=== PATIENT | male | born 1980 | race Two or more races ===

== ENCOUNTER 2018-03-14 18:48 | Inpatient (IN) | payer OTHER ==
[~2018-03-14] VITALS: Ht 177.8 cm; Wt 86.2 kg
[2018-03-14] MEDS ORDERED: COZAAR100 MG (19:30)
[2018-03-14] MEDS ORDERED: HYDROCHLOROTHIA50 MG (19:31)
[2018-03-14] MEDS ORDERED: TOPROL XL100 M1 (19:31)
--- NOTE | 2018-03-14 19:33 | NUR ---
PACIENTE REIFERE QUE LE NOTIFICARON DE LA OFICINA DEL DR. SHAW QUE LLEGUE A SHAYNA DE EMERGENCIAS .
== END 2018-04-13 20:23 | DRG 329 ==
LOC: ER 18:48 → ICU 20:30 → SURH 20:30 → ICU 03-25 12:09 → SURH 04-04 20:26
PROVIDERS: Urology; ADMIT Surgery
PROC: 0W9J30Z Drainage of Pelvic Cavity with Drainage Device, Percutaneous Approach (ICD-10-PCS; 2018-03-17)
PROC: 0DQN0ZZ Repair Sigmoid Colon, Open Approach (ICD-10-PCS; 2018-03-24)
PROC: 0W9J0ZZ Drainage of Pelvic Cavity, Open Approach (ICD-10-PCS; 2018-03-24)
PROC: 0D1B0Z4 Bypass Ileum to Cutaneous, Open Approach (ICD-10-PCS; 2018-03-24)
PROC: 0TQB0ZZ Repair Bladder, Open Approach (ICD-10-PCS; 2018-03-24)
PROC: 0T780DZ Dilation of Bilateral Ureters with Intraluminal Device, Open Approach (ICD-10-PCS; 2018-03-24)
PROC: 0DTN0ZZ Resection of Sigmoid Colon, Open Approach (ICD-10-PCS; principal; 2018-03-24 14:45)
PROC: 0DQ80ZZ Repair Small Intestine, Open Approach (ICD-10-PCS; 2018-03-24 14:45)
PROC: 5A1955Z Respiratory Ventilation, Greater than 96 Consecutive Hours (ICD-10-PCS; 2018-03-25)
PROC: 0BH17EZ Insertion of Endotracheal Airway into Trachea, Via Natural or Artificial Opening (ICD-10-PCS; 2018-03-25)
PROC: 30233K1 Transfusion of Nonautologous Frozen Plasma into Peripheral Vein, Percutaneous Approach (ICD-10-PCS; 2018-03-25)
PROC: 30233N1 Transfusion of Nonautologous Red Blood Cells into Peripheral Vein, Percutaneous Approach (ICD-10-PCS; 2018-03-25)
PROC: 30233R1 Transfusion of Nonautologous Platelets into Peripheral Vein, Percutaneous Approach (ICD-10-PCS; 2018-03-25)
PROC: 4A12X4Z Monitoring of Cardiac Electrical Activity, External Approach (ICD-10-PCS; 2018-04-05)
DX: K57.20 Diverticulitis of large intestine with perforation and abscess without bleeding (principal); K65.1 Peritoneal abscess; J95.821 Acute postprocedural respiratory failure; K63.2 Fistula of intestine; N39.0 Urinary tract infection, site not specified; N17.8 Other acute kidney failure; K91.72 Accidental puncture and laceration of a digestive system organ or structure during other procedure; E87.2 Acidosis; K91.841 Postprocedural hemorrhage of a digestive system organ or structure following other procedure; D62 Acute posthemorrhagic anemia; G72.81 Critical illness myopathy; Z99.11 Dependence on respirator [ventilator] status; B37.89 Other sites of candidiasis; R50.82 Postprocedural fever; R53.81 Other malaise; K66.0 Peritoneal adhesions (postprocedural) (postinfection); I10 Essential (primary) hypertension; E66.01 Morbid (severe) obesity due to excess calories; K57.30 Diverticulosis of large intestine without perforation or abscess without bleeding; Z93.3 Colostomy status

== ENCOUNTER 2018-05-02 15:09 | Inpatient (IN) | payer OTHER ==
[~2018-05-02] VITALS: Ht 177.8 cm; Wt 79.4 kg
[~2018-05-02 15:09] MED LIST: COZAAR100 MG; HYDROCHLOROTHIA50 MG; TOPROL XL100 M1
[2018-05-10] MEDS ORDERED: IMODIUM A-D2 MG PO (18:13)
== END 2018-05-10 19:03 | disposition home or self-care (01) | DRG 438 ==
LOC: ER 15:09 → ICU-2 18:17 → ICU 05-05 15:21 → SURH 05-07 12:29
PROVIDERS: ADMIT Internal Medicine
PROC: BW40ZZZ Ultrasonography of Abdomen (ICD-10-PCS; principal; 2018-05-02)
PROC: 4A033R1 Measurement of Arterial Saturation, Peripheral, Percutaneous Approach (ICD-10-PCS; 2018-05-02)
PROC: 30233N1 Transfusion of Nonautologous Red Blood Cells into Peripheral Vein, Percutaneous Approach (ICD-10-PCS; 2018-05-03)
PROC: 02HV33Z Insertion of Infusion Device into Superior Vena Cava, Percutaneous Approach (ICD-10-PCS; 2018-05-03)
PROC: BF37ZZZ Magnetic Resonance Imaging (MRI) of Pancreas (ICD-10-PCS; 2018-05-04)
PROC: 8E0ZXY6 Isolation (ICD-10-PCS; 2018-05-09)
DX: K85.80 Other acute pancreatitis without necrosis or infection (principal); N17.0 Acute kidney failure with tubular necrosis; K57.20 Diverticulitis of large intestine with perforation and abscess without bleeding; G72.81 Critical illness myopathy; E87.2 Acidosis; D62 Acute posthemorrhagic anemia; Z93.3 Colostomy status; I12.9 Hypertensive chronic kidney disease with stage 1 through stage 4 chronic kidney disease, or unspecified chronic kidney disease; N18.9 Chronic kidney disease, unspecified; E66.09 Other obesity due to excess calories; E86.0 Dehydration; J09.X2 Influenza due to identified novel influenza A virus with other respiratory manifestations

== ENCOUNTER 2018-06-14 14:32 | Inpatient (IN) | payer OTHER ==
[~2018-06-14] VITALS: Ht 177.8 cm; Wt 175.0 kg
[~2018-06-14 14:32] MED LIST changes: +IMODIUM A-D2 MG PO
--- NOTE | 2018-06-14 15:17 | NUR ---
PACIENTE ALERTA,ACTIVO Y ORIENTADO.REFIERE PRESION BAJA DESDE LA MANANA Y QUE ANAND SINTIO UN POCO DE DEBILIDAD.SE REALIZA EKG Y SE MUESTRA A CLYDE SANDRA QUIEN INDICA COLOCAR EN PASILLO PARA EVALUACION MEDICA.
--- NOTE | 2018-06-14 17:04 | NUR ---
MS ALAN ORIENTA PTE SOBRE TX MEDICO EL CUAL REFIERE ENTENDER,SE LE EXTRANE MUESTRAS,SE CANALIZA Y SE ADMINISTRA MEDICAMENTO [facility] ORDEN MEDICA.
--- NOTE | 2018-06-14 23:00 | NUR ---
PACIENTE ALERTA Y ORIENTADO EN SARAH KRISSY ESFERAS, PRESENTA BUEN PATRON RESPIRATORIO Y MELINA DE DOLOR. SALINE LOCK PATENTE Y MELINA DE S/S DE FLEBITIS E INFILTRACION, RECIBIENDO 0.9%NSS A 100 ML/HR. PENDIENTE CONSULTA CON MEDICINA INTERNA DR ALEJANDRE POR ARF Y PENDIENTE COLECTAR MUESTRA DE JAVAN PARA BMP A LAS 6:00 AM.
--- NOTE | 2018-06-15 08:35 | NUR ---
SE RECIBE DE TURNO ANTERIOR. PACIENTE MASCULINO. ALERTA Y ORIENTADO EN KRISSY ESFERAS. BUEN PATRON RESPIRATORIO. PIEL TIBIA AL TACTO. CANALIZACION PATENTE, MELINA DE EDEMA Y/O ENROJECIMIENTO RECIBIENDO 0.9%NSS @150 ML/HR. PACIENTE EN ESPERA DE CONSULTA CON DR ALEJANDRE. SE MANTIENE BAJO OBSERVACION POR CAMBIOS.
== END 2018-06-22 17:41 | disposition home or self-care (01) | DRG 660 ==
LOC: ER 14:32 → MEDJ 06-15 09:15
PROVIDERS: Urology; ADMIT Internal Medicine
PROC: BT4JZZZ Ultrasonography of Kidneys and Bladder (ICD-10-PCS; 2018-06-15)
PROC: 30233N1 Transfusion of Nonautologous Red Blood Cells into Peripheral Vein, Percutaneous Approach (ICD-10-PCS; 2018-06-16)
PROC: 0TP98DZ Removal of Intraluminal Device from Ureter, Via Natural or Artificial Opening Endoscopic (ICD-10-PCS; 2018-06-19)
PROC: BT14ZZZ Fluoroscopy of Kidneys, Ureters and Bladder (ICD-10-PCS; 2018-06-19)
PROC: 0T788DZ Dilation of Bilateral Ureters with Intraluminal Device, Via Natural or Artificial Opening Endoscopic (ICD-10-PCS; principal; 2018-06-19 13:30)
DX: I12.9 Hypertensive chronic kidney disease with stage 1 through stage 4 chronic kidney disease, or unspecified chronic kidney disease (principal); N17.8 Other acute kidney failure; E87.2 Acidosis; D62 Acute posthemorrhagic anemia; T83.122A Displacement of indwelling ureteral stent, initial encounter; B37.49 Other urogenital candidiasis; E86.0 Dehydration; E87.8 Other disorders of electrolyte and fluid balance, not elsewhere classified; Z88.6 Allergy status to analgesic agent; I95.89 Other hypotension; Z93.3 Colostomy status; N32.89 Other specified disorders of bladder; N18.2 Chronic kidney disease, stage 2 (mild)

== ENCOUNTER 2018-07-10 12:10 | Outpatient (CLI) | payer OTHER | END 2018-07-10 12:24 | disposition home or self-care (01) | LOC: LAB 12:10 | DX: R31.1 Benign essential microscopic hematuria (principal) ==

== ENCOUNTER 2018-08-14 12:39 | Outpatient (CLI) | payer OTHER | END 2018-08-14 12:44 | disposition home or self-care (01) | LOC: LAB 12:39 | DX: N30.00 Acute cystitis without hematuria (principal) ==

== ENCOUNTER 2018-08-14 12:42 | Outpatient (CLI) | payer OTHER | END 2018-08-14 14:39 | disposition home or self-care (01) | LOC: RAD 12:42 | DX: N20.0 Calculus of kidney (principal) ==

== ENCOUNTER 2018-09-21 16:57 | Inpatient (IN) | payer OTHER ==
[~2018-09-21] VITALS: Ht 177.8 cm; Wt 88.5 kg
[2018-10-20] MEDS ORDERED: PERCOCET 5-3251 EACH PO (07:03)
[2018-10-20] MEDS ORDERED: INTESTINEX680 M1 PO (07:03)
[2018-10-20] MEDS ORDERED: FLAGYL500MG PO (07:03)
[2018-10-20] MEDS ORDERED: OMEPRAZOLE20 MG PO (07:03)
== END 2018-10-20 10:32 | disposition home or self-care (01) | DRG 330 ==
LOC: ADM 09-27 11:15 → O/R 10-10 06:23 → SURH 10-10 06:23 → ADM 10-10 11:15 → EDSTATUS 10-10 11:15 → SURH 10-10 11:15
PROVIDERS: ADMIT Surgery
PROC: 0DQB4ZZ Repair Ileum, Percutaneous Endoscopic Approach (ICD-10-PCS; principal; 2018-10-10 10:45)
PROC: 0DH67UZ Insertion of Feeding Device into Stomach, Via Natural or Artificial Opening (ICD-10-PCS; 2018-10-13)
PROC: 3E0G76Z Introduction of Nutritional Substance into Upper GI, Via Natural or Artificial Opening (ICD-10-PCS; 2018-10-13)
DX: K57.20 Diverticulitis of large intestine with perforation and abscess without bleeding (principal); N17.8 Other acute kidney failure; E87.2 Acidosis; E44.0 Moderate protein-calorie malnutrition; K63.89 Other specified diseases of intestine; I12.9 Hypertensive chronic kidney disease with stage 1 through stage 4 chronic kidney disease, or unspecified chronic kidney disease; N18.3 Chronic kidney disease, stage 3 (moderate); E66.09 Other obesity due to excess calories; K91.0 Vomiting following gastrointestinal surgery; E11.22 Type 2 diabetes mellitus with diabetic chronic kidney disease; Z79.4 Long term (current) use of insulin; Z93.2 Ileostomy status

== ENCOUNTER 2018-09-26 14:12 | Outpatient (CLI) | payer OTHER | END 2018-09-26 14:25 | disposition home or self-care (01) | LOC: EKG 14:12 | DX: I10 Essential (primary) hypertension (principal); K57.20 Diverticulitis of large intestine with perforation and abscess without bleeding; Z93.3 Colostomy status; K43.9 Ventral hernia without obstruction or gangrene; R10.9 Unspecified abdominal pain; R10.32 Left lower quadrant pain ==

== ENCOUNTER 2018-10-02 09:26 | Day surgery (SDC) | payer OTHER | END 2018-10-02 14:50 | disposition home or self-care (01) | LOC: AMB-ENDOS 09:26 | DX: K57.20 Diverticulitis of large intestine with perforation and abscess without bleeding (principal) ==

== ENCOUNTER 2018-11-13 14:26 | Emergency (ER) | payer OTHER ==
[~2018-11-13] VITALS: Ht 177.8 cm; Wt 90.7 kg
[~2018-11-13 14:26] MED LIST changes: +FLAGYL500MG PO; +INTESTINEX680 M1 PO; +OMEPRAZOLE20 MG PO; +PERCOCET 5-3251 EACH PO
== END 2018-11-13 19:10 | disposition home or self-care (01) ==
LOC: ER 14:26
DX: K58.9 Irritable bowel syndrome, unspecified (principal)

== ENCOUNTER → 2019-06-18 | Outpatient (CLI) | payer OTHER | END | disposition home or self-care (01) | LOC: MAMO-SONO 08:15 → SONOGRAMA 13:57 | DX: R31.1 Benign essential microscopic hematuria (principal) ==

== ENCOUNTER 2019-07-08 15:28 | Emergency (ER) | payer OTHER ==
[~2019-07-08] VITALS: Ht 177.8 cm; Wt 102.5 kg
== END 2019-07-08 22:51 | disposition home or self-care (01) ==
LOC: ER 15:28
DX: K52.89 Other specified noninfective gastroenteritis and colitis (principal); K56.7 Ileus, unspecified

== ENCOUNTER 2020-09-11 14:31 | Emergency (ER) | payer OTHER ==
[~2020-09-11] VITALS: Ht 177.8 cm; Wt 98.4 kg
== END 2020-09-11 19:04 | disposition home or self-care (01) ==
LOC: ER 14:31
DX: R10.84 Generalized abdominal pain (principal)

== ENCOUNTER 2020-10-10 11:13 | Emergency (ER) | payer OTHER ==
[~2020-10-10] VITALS: Ht 177.8 cm; Wt 98.9 kg
== END 2020-10-10 15:16 | disposition home or self-care (01) ==
LOC: ER 11:13
DX: I16.0 Hypertensive urgency (principal)

== ENCOUNTER 2022-06-16 14:09 | Emergency (ER) | payer OTHER ==
[~2022-06-16] VITALS: Ht 177.8 cm; Wt 1022.4 kg
== END 2022-06-16 20:19 | disposition home or self-care (01) ==
LOC: ER 14:09
DX: R30.0 Dysuria (principal); Z88.6 Allergy status to analgesic agent

== ENCOUNTER 2022-09-06 22:17 | Emergency (ER) | payer OTHER ==
[~2022-09-06] VITALS: Ht 177.8 cm; Wt 104.3 kg
== END 2022-09-07 02:22 | disposition home or self-care (01) ==
LOC: ER 22:17
DX: I10 Essential (primary) hypertension (principal); Z88.6 Allergy status to analgesic agent

== ENCOUNTER 2022-10-26 13:53 | Emergency (ER) | payer OTHER ==
[~2022-10-26] VITALS: Ht 177.8 cm; Wt 102.5 kg
[2022-10-26] MEDS ORDERED: HYDRALAZINE HCL50 MG PO (14:19)
== END 2022-10-26 19:20 | disposition home or self-care (01) ==
LOC: ER
DX: S99.821A Other specified injuries of right foot, initial encounter (principal); X58.XXXA Exposure to other specified factors, initial encounter; Y93.89 Activity, other specified; Y92.098 Other place in other non-institutional residence as the place of occurrence of the external cause; Y99.8 Other external cause status; M79.671 Pain in right foot; I10 Essential (primary) hypertension; Z88.6 Allergy status to analgesic agent

== ENCOUNTER 2023-03-09 05:11 | Emergency (ER) | payer OTHER ==
[~2023-03-09] VITALS: Ht 172.7 cm; Wt 106.6 kg
[~2023-03-09 05:11] MED LIST changes: +HYDRALAZINE HCL50 MG PO
[2023-03-09] MEDS ORDERED: AMLODIPINE-OLM1 EACH (05:37)
[2023-03-09] MEDS ORDERED: NORFLEX100MG PO (07:54)
[2023-03-09] MEDS ORDERED: DOLOGESIC 500-1 EACH PO (07:54)
== END 2023-03-09 08:10 | disposition home or self-care (01) ==
LOC: ER 05:11
DX: M62.830 Muscle spasm of back (principal); M62.838 Other muscle spasm; I10 Essential (primary) hypertension; Z88.6 Allergy status to analgesic agent

== ENCOUNTER 2023-08-18 11:29 | Emergency (ER) | payer OTHER ==
[~2023-08-18] VITALS: Ht 177.8 cm; Wt 113.4 kg
[~2023-08-18 11:29] MED LIST changes: +AMLODIPINE-OLM1 EACH; +DOLOGESIC 500-1 EACH PO; +NORFLEX100MG PO
[2023-08-18] MEDS ORDERED: ROCALTROL0.25 MCG PO (12:18)
[2023-08-18] MEDS ORDERED: ORPHENADRINE CITRATE 30 MG/ML AMPUL IM ONE (15:15)
[2023-08-18] MEDS ORDERED: DEXAMETHASONE SODIUM PHOSPHATE 4 MG/ML VIAL IM ONE (15:15)
[2023-08-18] MEDS ORDERED: ORPHENADRINE CITRATE 30 MG/ML AMPUL ONE (15:22)
[2023-08-18] MEDS ORDERED: DEXAMETHASONE SODIUM PHOSPHATE 4 MG/ML VIAL ONE (15:23)
[2023-08-18] MEDS ORDERED: TYLENOL ARTHRI650 MG PO (16:09)
[2023-08-18] MEDS ORDERED: NORFLEX100MG PO (16:09)
== END 2023-08-18 16:36 | disposition home or self-care (01) ==
LOC: ER 11:29
DX: S13.9XXA Sprain of joints and ligaments of unspecified parts of neck, initial encounter (principal); Z88.6 Allergy status to analgesic agent

== ENCOUNTER 2023-10-19 15:09 | Emergency (ER) | payer OTHER ==
[~2023-10-19] VITALS: Ht 177.8 cm; Wt 113.4 kg
[~2023-10-19 15:09] MED LIST changes: +ROCALTROL0.25 MCG PO; +TYLENOL ARTHRI650 MG PO
== END 2023-10-19 17:10 | disposition home or self-care (01) ==
LOC: ER 15:10
DX: H61.22 Impacted cerumen, left ear (principal); Z88.6 Allergy status to analgesic agent